=== PATIENT | female | born 1960 | race African-American/Black ===

== ENCOUNTER 2017-05-09 17:36 | Emergency (ER) | payer MEDICAID ==
[~2017-05-09] VITALS: Ht 160 cm; Wt 135.0 kg
[2017-05-09] MEDS ORDERED: KETOROLAC 60MG/2ML VIAL IM ONE (18:30)
[2017-05-09 19:32] VITALS: BP 137/59
== END 2017-05-09 19:42 | disposition home or self-care (01) ==
LOC: ER 18:00
DX: M25.551 Pain in right hip (principal); M25.552 Pain in left hip; V87.8XXA Person injured in other specified noncollision transport accidents involving motor vehicle (traffic), initial encounter; Y93.I9 Activity, other involving external motion; Y92.89 Other specified places as the place of occurrence of the external cause; Y99.8 Other external cause status; I10 Essential (primary) hypertension
CPT/HCPCS: 73522; 96372; 99284; J1885

== ENCOUNTER 2021-06-02 12:04 | Inpatient (IN) | payer MEDICAID, OTHER ==
[~2021-06-02] VITALS: Ht 160 cm; Wt 127.0 kg
[2021-06-02] MEDS ORDERED: ONDANSETRON HCL 4MG/2ML INJ IV STA (12:22)
[2021-06-02] MEDS ORDERED: SODIUM CHLORIDE 0.9% 1,000 ML IV ONE (12:30)
[2021-06-02 13:06] LABS: BASOPHILS % 0.4 % (0.0-2.0); EOSINOPHILS % 0.7 % (0.0-5.0); HEMATOCRIT. 41.7 % (36.0-48.0); HEMOGLOBIN. 13.5 g/dL (12.0-16.0); LYMPHOCYTES % 24.8 % (20.0-50.0); MEAN CORPUSCULAR HEMOGLOBIN 29.1 pg (28.0-32.0); MEAN CORPUSCULAR VOLUME 89.7 fL (81.0-99.0); MEAN PLATELET VOLUME 9.5 fl (7.4-10.4); NEUTROPHILS % 66.1 % (40.0-76.0); PLATELET 171 x1000/uL (130-400); RED BLOOD CELL COUNT 4.65 mill/uL (4.2-5.4); RED CELL DISTRIBUTION WIDTH 13.8 % (11.6-14.6)
[2021-06-02 13:09] LABS: CHLORIDE 109 mEq/L (98-107)
[2021-06-02] MEDS ORDERED: ONDANSETRON HCL 4MG/2ML INJ IV ONE (16:00)
[2021-06-02] MEDS ORDERED: HALOPERIDOL LACTATE 5MG/ML VIAL IM NR (19:00)
[2021-06-02] MEDS ORDERED: IOHEXOL-300 100 ML BOTTLE ONE (21:17)
[2021-06-02 21:55] LABS: CLARITY URINE CLEAR (CLEAR); COLOR URINE YELLOW (YELLOW); KETONES URINE TRACE (NEGATIVE); LEUKOCYTE ESTERASE URINE NEGATIVE (NEGATIVE); NITRITE URINE NEGATIVE (NEGATIVE); OCCULT BLOOD URINE TRACE (NEGATIVE); PH URINE 6.5 (4.5-8.0); PROTEIN URINE TRACE (NEGATIVE); SPECIFIC GRAVITY URINE 1.052 (1.005-1.030); UROBILINOGEN URINE 0.2 E.U./dL (0.2-1.0)
[2021-06-03] MEDS ORDERED: HYDRALAZINE 20MG/ML VIAL IV PRN (00:30)
[2021-06-03] MEDS ORDERED: IPRATROPIUM/ALBUTEROL 0.5-3(2.5)MG/3ML NEB NEB PRN (00:30)
[2021-06-03] MEDS ORDERED: MORPHINE SULFATE 2 MG/ML CPJ (NOT FOR IM USE) IV PRN (00:30)
[2021-06-03] MEDS ORDERED: ONDANSETRON HCL 4MG/2ML INJ IV PRN (00:30)
[2021-06-03] MEDS ORDERED: NALOXONE HCL 0.4MG/ML VIAL IV PRN (01:30)
[2021-06-03] MEDS ORDERED: LACTATED RINGERS 1,000 ML IV SCH (01:30)
[2021-06-03 03:48] VITALS: BP 141/79
[2021-06-03 08:00] VITALS: BP 110/65
[2021-06-03 08:38] LABS: BASOPHILS % 0.4 % (0.0-2.0); EOSINOPHILS % 0.2 % (0.0-5.0); HEMATOCRIT. 35.7 % (36.0-48.0); HEMOGLOBIN. 11.8 g/dL (12.0-16.0); LYMPHOCYTES % 27.2 % (20.0-50.0); MEAN CORPUSCULAR HEMOGLOBIN 29.6 pg (28.0-32.0); MEAN CORPUSCULAR VOLUME 89.6 fL (81.0-99.0); MEAN PLATELET VOLUME 9.3 fl (7.4-10.4); MONOCYTES % 13.1 % (2.0-8.0); NEUTROPHILS % 59.1 % (40.0-76.0); PLATELET 176 x1000/uL (130-400); RED BLOOD CELL COUNT 3.98 mill/uL (4.2-5.4); RED CELL DISTRIBUTION WIDTH 14.1 % (11.6-14.6)
[2021-06-03] MEDS ORDERED: ENOXAPARIN 30MG/0.3ML SYR SUBCUT SCH (09:00)
[2021-06-03 09:45] LABS: CHLORIDE 107 mEq/L (98-107)
[2021-06-03 12:00] VITALS: BP 166/99
[2021-06-03] MEDS ORDERED: AMLO5TAB88 MT (13:05)
[2021-06-03 13:50] VITALS: BP 112/73
== END 2021-06-03 15:12 | disposition home or self-care (01) | DRG 254 ==
LOC: ER 12:04 → 6EST 23:32 → ENRESERV 06-03 00:37
PROVIDERS: ADMIT Internal Medicine; ATTEND Internal Medicine
DX: K43.6 Other and unspecified ventral hernia with obstruction, without gangrene (principal); D64.9 Anemia, unspecified; I10 Essential (primary) hypertension; N85.2 Hypertrophy of uterus; F17.200 Nicotine dependence, unspecified, uncomplicated; R60.9 Edema, unspecified; Z90.49 Acquired absence of other specified parts of digestive tract
CPT/HCPCS: 36415; 74177; 80048; 80053; 80061; 81003; 83036; 83735; 84443; 84484; 85025; 99285; J1630; J1650; J2405; J7030; Q9967

== ENCOUNTER 2022-12-02 22:34 | Emergency (ER) | payer OTHER, MEDICAID ==
[~2022-12-02] VITALS: Ht 160 cm; Wt 127.0 kg
[~2022-12-02 22:34] MED LIST: AMLO5TAB88 MT
[2022-12-03] MEDS ORDERED: MUPI1OIN4 TP (02:31)
[2022-12-03 02:38] VITALS: BP 183/91
== END 2022-12-03 02:42 | disposition home or self-care (01) ==
LOC: ER 22:46
DX: S91.001D Unspecified open wound, right ankle, subsequent encounter (principal); I10 Essential (primary) hypertension; X58.XXXD Exposure to other specified factors, subsequent encounter
CPT/HCPCS: 99283

== ENCOUNTER 2023-06-25 02:54 | Emergency (ER) | payer OTHER, MEDICAID ==
[~2023-06-25] VITALS: Ht 165.1 cm; Wt 113.0 kg
[~2023-06-25 02:54] MED LIST changes: +MUPI1OIN4 TP
[2023-06-25 02:55] VITALS: BP 136/70; PULSE 88; RESP 15; TEMP 98.3; O2SAT 98
== END 2023-06-25 05:57 | disposition left against medical advice (07) ==
LOC: ER 03:03
DX: R10.84 Generalized abdominal pain (principal); R11.2 Nausea with vomiting, unspecified; Z53.21 Procedure and treatment not carried out due to patient leaving prior to being seen by health care provider
CPT/HCPCS: 99281